=== PATIENT | male | born 2005 | race Native Hawaiian/Other Pacific Islander ===

== ENCOUNTER 2024-07-25 18:46 | Emergency (ER) | payer OTHER, SELFPAY ==
[2024-07-25 18:51] VITALS: BP 114/67; PULSE 62; RESP 16; TEMP 36.9; O2SAT 95; BMI 22.4
--- NOTE | 2024-07-25 18:56 | ED.GENADULT ---
HPI - General Adult General Time Seen by Provider: 18:56 Date Seen: 07/25/24 Chief complaint: Unspecified Complaint, Adult Stated complaint: soars on lips, eyes and swollen lymph nodes Time Seen by Provider: 07/25/24 18:54 Source: patient and RN notes reviewed Mode of arrival: ambulatory Limitations: no limitations History of Present Illness HPI narrative: This 19-year-old male is brought in by a mom for concern of lesions that have been spreading on his face. He notes he feels it started on his left lower lip, along the edge. He had lymph nodes last night along his left jaw line that were more swollen in prominent, have gone down today. Since the original lesion, it spread to his upper lip area, above the lip up below the nose. They are not painful but somewhat itchy. He is now noted some lesions along his upper nose, more along the left side of the nose by the eye. Again these lesions are not painful, more itchy. They seem to spread quickly per his report. He is never had a history of a cold sore. Mom did have him start on L lysine just in case they were cold sores. He does not have a history of MRSA ever that they are aware of. He does have underlying eczema. He has had no fevers or chills, no night sweats. He has felt tired though. He is working in a grocery store, does interact with customers. Related Data Previous Rx's ?Medication ?Instructions ?Recorded cephalexin 500 mg tablet 500 mg PO TID #21 tabs 07/25/24 mupirocin 2 % topical ointment 1 applic topical BID 7 days #22 07/25/24 grams Allergies Allergy/AdvReac Type Severity Reaction Status Date / Time No Known Drug Allergies Allergy Verified 07/25/24 18:55 Review of Systems Narrative: As per HPI. [facility] Medical History (Updated 07/25/24 @ 19:18 by Amanda Marshall MD) Eczema ?L30.9 - Dermatitis, unspecified (ICD-10) Surgical History No significant past surgical history Exam Const: Vital Signs, click to edit/add: Vital Signs - 24 hr 07/25/24 18:51 Temperature 98.4 F Pulse Rate [Pulse Oximeter] 62 Respiratory Rate 16 Blood Pressure [Ri ght Upper Arm] 114/67 Pulse Oximetry 95 Oxygen Delivery Me thod Room Air This 19-year-old male is alert, interactive, no apparent distress. He is sitting up on the edge of the bed. Sclera clear, extraocular muscles intact. No periorbital skin changes. He has some erythematous mildly raise at lesions without vesicles, maybe 5 her 6 scattered over the upper nose along the left side but outside of the orbit, periorbital structures. There are no pustules on these either. He has a coalesced area of lesions with some scabbing and almost what appears to be crusting in between the nose in the upper lip in the center in the philtrum area. Lips himself are normal. Oropharynx is normal. Face is unaffected elsewhere. I feel no significant cervical adenopathy, no submental adenopathy. Lungs are clear, good air entry, no wheezing crackles. CV regular rate and rhythm, no murmur. Documenting provider has reviewed patient's vital signs: yes Course Course ED Course: Reviewed with them that I do have concerns for impetigo. We discussed that this can typically be staff for strep organisms. He has no known history of MRSA. Does have underlying eczema which could put him at risk for skin bacterial infections. I do think we should treat with antibiotics in try some mupirocin ointment. Mom is in agreement. I do not feel that what I am seeing now is consistent with cold sores. It is still a possibility but certainly the lesions along his left nose absolutely do not look like new vesicles of herpes. I would favor treating for skin infection with bacteria consistent with impetigo. They understand to seek re-evaluation if there are further concerns or worsening. Vital Signs Vital signs: Initial Vital Signs Temperature 98.4 F 07/25/24 18:51 Temperature Source Temporal Artery Scan 07/25/24 18:51 Pulse Rate 62 07/25/24 18:51 Respiratory Rate 16 07/25/24 18:51 Blood Pressure 114/67 07/25/24 18:51 Blood Pressure Mean 82 07/25/24 18:51 Blood Pressure Position Sitting 07/25/24 18:51 Pulse Oximetry 95 07/25/24 18:51 Oxygen Delivery Method Room Air 07/25/24 18:51 Vital Signs Temperature 98.4 F 07/25/24 18:51 Pulse Rate 62 07/25/24 18:51 Respiratory Rate 16 07/25/24 18:51 Blood Pressure 114/67 07/25/24 18:51 Pulse Oximetry 95 07/25/24 18:51 Oxygen Delivery Method Room Air 07/25/24 18:51 Temperature 98.4 F 07/25/24 18:51 Pulse Rate 62 07/25/24 18:51 Respiratory Rate 16 07/25/24 18:51 Blood Pressure 114/67 07/25/24 18:51 Pulse Oximetry 95 07/25/24 18:51 Oxygen Delivery Method Room Air 07/25/24 18:51 Discharge Plan Discharge Clinical Impression: Impetigo Patient Disposition: Home, Self-Care Condition: Stable Instructions: Impetigo (ED) Additional Instructions: Start oral antibiotic tonight, take as prescribed. Can use the ointment twice a day, should not get it in your eye. If you are having problems applying it to the lesions on the upper nose by your left eye, can skip applying it there. Should be fine to put it above the upper lip. If you are not improving with this treatment, have concerns for worsening or develop new or concerning issues with this, do need to be re-evaluated. It is very important to wash your hands with soap and water after touching these lesions to help prevent spreading. Have provided a note to be off work for 2 days. Activity Level: No Restrictions Prescriptions: New cephalexin 500 mg tablet 500 mg PO TID Qty: 21 0RF mupirocin 2 % ointment 1 applic topical BID 7 Days Qty: 22 0RF Stand Alone Forms: Work/School Release, [facility] Info Instructions
[2024-07-25 19:23] VITALS: BP 121/65; PULSE 68; RESP 16; TEMP 36.9; O2SAT 95
[2024-07-25 19:24] VITALS: BP 121/65; PULSE 68; RESP 16; TEMP 36.9
== END 2024-07-25 19:41 | disposition home or self-care (01) ==
LOC: ED 19:27
PROVIDERS: Emergency Provider Family Medicine
DX: L01.00 Impetigo, unspecified (principal)
CPT/HCPCS: 99283